=== PATIENT | female | born 1955 | race Caucasian/White ===

== ENCOUNTER 2018-03-01 19:00 | Inpatient (IN) | payer OTHER ==
--- NOTE | 2018-03-01 19:17 | ED Physician Chart ---
ED Chief Complaint/HPI - Patient Information Date Seen:: 03/01/18 Time Seen:: 19:00 Chief Complaint:: fall History of Present Illness:: THIS IS A 63 YO HYPERTENSIVE, DIABETIC FEMALE WITH CHRONIC BACK PAIN WHO FELL WHILE WALKING WITH A WALKER JUST COUNTER TOP ASSEMBLER. SHE SUSTAINED A CONTUSION AND HEMATOMA OF THE SCALP WITHOUT LOC. SHE ALSO IS COMPLAINING OF LOWER BACK PAIN. Allergies:: Allergies Allergy/AdvReac Type Severity Reaction Status Date / Time No Known Allergies Allergy Verified 03/01/18 19:03 Vitals:: Vital Signs - 8 hr 03/01/18 19:04 Temp 98.9 F HR 98 RR 18 BP 146/86 O2 Sat % 93 Historian:: Patient, EMS Review:: Nurse's Note Reviewed ED Review of Systems - Review of Systems General/Constitutional: No fever, No chills, No weight loss, No weakness, No diaphoresis, No edema, No loss of appetite Skin: No skin lesions, No rash, No bruising Head: Headache, No light-headedness Eyes: No loss of vision, No pain, No diplopia ENT: No earache, No nasal drainage, No sore throat, No tinnitus Neck: No neck pain, No swelling, No thyromegaly, No stiffness, No mass noted Cardio Vascular: No chest pain, No palpitations, No PND, No orthopnea, No edema Pulmonary: No SOB, No cough, No sputum, No wheezing GI: No nausea, No vomiting, No diarrhea, No pain, No melena, No hematochezia, No constipation, No hematemesis G/U: No dysuria, No frequency, No hematuria Musculoskeletal: No bone or joint pain, Back pain, No muscle pain Endocrine: No polyuria, No polydipsia Psychiatric: No prior psych history, No depression, No anxiety, No suicidal ideation Hematopoietic: No bruising, No lymphadenopathy Allergic/Immuno: No urticaria, No angioedema Neurological: No syncope, No focal symptoms, No weakness, No paresthesia, No headache, No seizure, No dizziness, No confusion, No vertigo ED Past Medical History - Past Medical History Obtainable: Yes Past Medical History: HTN, DM, Dyslipidemia, Arthritis Family History: None Social History: Non Smoker, No Alcohol, No Drug Use, Homeless Surgical History: Cholecystectomy, other (NECK SURGERY) Psychiatricy History: Depression Medication: Reviewed Family Medical History - Family Member Mother History Unknown: Yes ED Physical Exam - Physical Examination General/Constitutional: Awake, Well-developed, well-nourished, Alert, No distress, GCS 15, Non-toxic appearing, Ambulatory Other Head comments:: THERE IS A SMALL HEMATOMA ON THE RIGHT PARIETAL AREA OF THE SCALP WITH TENDERNESS AROUND THE AREA. Eyes: Lids, conjuctiva normal, PERRL, EOMI Skin: Nl inspection, No rash, No skin lesions, No ecchymosis, Well hydrated, No lymphadenopathy ENMT: External ears, nose nl, Nasal exam nl, Lips, teeth, gums nl Neck: Nontender, Full ROM w/o pain, No JVD, No nuchal rigidity, No bruit, No mass, No stridor Respiratory: Nl effort/Exclusion, Clear to Auscultation, No Wheeze/Rhonchi/Rales Cardio Vascular: RRR, No murmur, gallop, rubs, NL S1 S2 GI: No tenderness/rebounding/guarding, No organomegaly, No hernia, Normal BS's, Nondistended, No mass/bruits, No McBurney tenderness : No CVA tenderness Extremities: No tenderness or effusion, Full ROM, normal strength in all extremities, No edema, Normal digits & nails Neuro/Psych: Alert/oriented, DTR's symmetric, Normal sensory exam, Normal motor strength, Judgement/insight normal, Mood normal, Normal gait, No focal deficits Misc: No paraspinal tenderness Other Misc comments:: THE PATIENT'S LUMBOSACRAL AREA IS TENDER BILATERALLY WITH NORMAL BUT PAINFUL ROM. ED Labs/Radiology/EKG Results - Lab Results Results: Abnormal Lab Results 03/01/18 03/01/18 03/01/18 19:19 19:19 19:19 WBC 8.9 RBC 5.37 H Hgb 16.0 Hct 47.5 MCV 88.5 MCH 29.8 MCHC Differential 33.7 RDW 13.2 Plt Count 182 MPV 9.4 Neutrophils % 54.6 Lymphocytes % 35.7 Monocytes % 6.3 Eosinophils % 3.0 Basophils % 0.4 PT 11.5 INR 1.10 PTT (Actin FS) 23.9 L Sodium 132 L Potassium 4.3 Chloride 96 L Carbon Dioxide 29.4 Anion Gap 10.9 BUN 16 Creatinine 0.9 Est GFR ( Amer) > 60.0 Est GFR (Non-Af Amer) > 60.0 BUN/Creatinine Ratio 17.8 Glucose 311 H Calcium 9.9 Total Bilirubin 0.8 AST 78 H ALT 55 H Alkaline Phosphatase 93 Troponin I Total Protein 7.8 Albumin 4.2 Globulin 3.6 Albumin/Globulin Ratio 1.2 03/01/18 19:19 WBC RBC Hgb Hct MCV MCH MCHC Differential RDW Plt Count MPV Neutrophils % Lymphocytes % Monocytes % Eosinophils % Basophils % PT INR PTT (Actin FS) Sodium Potassium Chloride Carbon Dioxide Anion Gap BUN Creatinine Est GFR ( Amer) Est GFR (Non-Af Amer) BUN/Creatinine Ratio Glucose Calcium Total Bilirubin AST ALT Alkaline Phosphatase Troponin I < 0.01 L Total Protein Albumin Globulin Albumin/Globulin Ratio - Radiology Results Results: CHEST X-RAY = NAD CT OF THE HEAD = NAD CT OF THE LUMBOSACRAL SPINE = SEVERE DEGENERATIVE DISEASE - EKG Interpretations EKG Time:: 19:41 Rate & Rhythm: 95 and sinus Sharon: left axis ED Assessment - Assessment General Assessment: HEAD AND BACK TRAUMA HEMATOMA OF THE HEAD ED Septic Shock - . Is Septic Shock (SBP<90, OR Lactate>4 mmol\L) present?: No - <6hrs of presentation: Vital Signs: Vital Signs - 8 hr 03/01/18 19:04 Temp 98.9 F HR 98 RR 18 BP 146/86 O2 Sat % 93 ED Reassessment (Disposition) - Reassessment Reassessment Condition:: Improved - Diagnosis Diagnosis:: HEAD TRAUMA CONTUSION OF THE LUMBOSACRAL SPINE SEVERE LUMBOSACRAL DEGENERATIVE DISEASE DIABETES MELLITUS HYPERTENSION - Patient Disposition Discharge/Transfer:: Acute Care w/in this hosp Admitting Medical Physician:: Eliza Gaxiola Condition at Disposition:: Unchanged ED Discharge Plan - Patient Disposition Admit/Discharge/Transfer: Home Health IV Service Condition at Disposition: Guarded
[2018-03-01 19:28] LABS: % BASOPHILS 0.4 % (0.0-2.0); % LYMPHOCYTES 35.7 % (20.0-50.0); % MONOCYTES 6.3 % (2.0-10.0); % NEUTROPHILS 54.6 % (40.0-80.0); EOSINOPHILE ABSOLUTE 0.3 Th/cmm (0.1-0.4); HEMATOCRIT 47.5 % (41.0-60); LYMPHOCYTE ABSOLUTE 3.2 Th/cmm (1.5-3.0); MEAN CELL VOLUME 88.5 fl (81-100); MEAN CORPUSCULAR HEMOGLOBIN 29.8 pg (27.0-31.0); MEAN CORPUSCULAR HGB CONC 33.7 pg (28.0-36.0); MEAN PLATELET VOLUME 9.4 fl; MONOCYTE ABSOLUTE 0.6 Th/cmm (0.3-1.0); NEUTROPHILE ABSOLUTE 4.8 Th/cmm (1.8-8.0); PLATELET COUNT 182 Th/cmm (150-400); RED BLOOD COUNT 5.37 Mil/cmm (3.80-5.10); RED CELL DISTRIBUTION WIDTH 13.2 % (11.5-20.0); WHITE BLOOD COUNT 8.9 Th/cmm (4.8-10.8)
[2018-03-01 19:39] LABS: INR 1.1 (0.5-1.4); PROTHROMBIN TIME (TEST) 11.5 SECONDS (9.5-11.5)
[2018-03-01 19:43] LABS: ALB/GLOB RATIO 1.2 (1.0-1.8); ALBUMIN 4.2 gm/dL (3.7-5.3); ALKALINE PHOSPHATASE 93 U/L (34-104); ANION GAP 10.9 (7.0-16.0); BILIRUBIN,TOTAL 0.8 mg/dL (0.3-1.0); BUN - UREA NITROGEN 16 mg/dL (7-25); CALCIUM SERUM 9.9 mg/dL (8.6-10.3); CARBON DIOXIDE 29.4 mEq/L (21.0-31.0); CHLORIDE 96 mEq/L (98-107); CREATININE - SERUM 0.9 mg/dL (0.6-1.2); GFR AFRICAN-AMERICAN > 60.0 ml/min (>90); GFR NON AFRICAN-AMERICAN > 60.0 ml/min; GLUCOSE 311 mg/dL (70-105); POTASSIUM SERUM 4.3 mEq/L (3.5-5.1); SGOT 78 U/L (13-39); SGPT/ALT 55 U/L (7-52); SODIUM SERUM 132 mEq/L (136-145); TOTAL PROTEIN,SERUM 7.8 gm/dL (6.0-8.3)
[2018-03-01 21:36] LABS: URINE MICROSCOPIC INDICATED? YES; URINE SOURCE CLEAN C
[2018-03-01 21:39] LABS: URINE BILIRUBIN NEGATIVE (NEGATIVE); URINE BLOOD NEGATIVE (NEGATIVE); URINE GLUCOSE (UA) >=1000 mg/dL (NEGATIVE); URINE KETONE NEGATIVE (NEGATIVE); URINE LEUKOCYTE ESTERASE NEGATIVE (NEGATIVE); URINE NITRATE NEGATIVE (NEGATIVE); URINE PH 5.5 (4.6 - 8.0); URINE PROTEIN NEGATIVE (NEGATIVE); URINE UROBILINOGEN 0.2 E.U./dL (0.2 - 1.0)
[2018-03-01 21:41] LABS: URINE CLARITY CLEAR (CLEAR); URINE COLOR YELLOW
[2018-03-01 21:43] LABS: URINE BACTERIA NONE SEEN /hpf (NONE SEEN); URINE EPITHELIAL CELLS NONE SEEN /lpf (FEW); URINE RBC NONE SEEN /hpf (0-5); URINE WBC NONE SEEN /hpf (0-5)
[2018-03-01] MEDS: Sodium Chloride 0.9% 1,000 ML IV SCH (23:21)
[2018-03-01] MEDS: INSULIN ASPART, RECOMBINANT 100 UNITS/ML SUBQ SCH (23:44)
[2018-03-01] MEDS: Hydrocodone/APAP 10 mg/325 mg Tab PO PRN (23:46)
[2018-03-02 00:22] VITALS: BP 99/63
[2018-03-02 06:03] LABS: % BASOPHILS 1.3 % (0.0-2.0); % EOSINOPHILS 4.2 % (0.0-5.0); % LYMPHOCYTES 42.8 % (20.0-50.0); % MONOCYTES 7.4 % (2.0-10.0); % NEUTROPHILS 44.3 % (40.0-80.0); BASOPHILE ABSOLUTE 0.1 Th/cumm (0-0.2); EOSINOPHILE ABSOLUTE 0.3 Th/cmm (0.1-0.4); HEMATOCRIT 41.5 % (41.0-60); MEAN CELL VOLUME 87.3 fl (81-100); MEAN CORPUSCULAR HEMOGLOBIN 29.5 pg (27.0-31.0); MEAN CORPUSCULAR HGB CONC 33.8 pg (28.0-36.0); MEAN PLATELET VOLUME 9.2 fl; MONOCYTE ABSOLUTE 0.5 Th/cmm (0.3-1.0); PLATELET COUNT 161 Th/cmm (150-400); RED BLOOD COUNT 4.76 Mil/cmm (3.80-5.10); RED CELL DISTRIBUTION WIDTH 13.4 % (11.5-20.0)
[2018-03-02 06:06] LABS: WHITE BLOOD COUNT 6.9 Th/cmm (4.8-10.8)
[2018-03-02 06:22] LABS: ANION GAP 9.5 (7.0-16.0); BUN - UREA NITROGEN 24 mg/dL (7-25); CARBON DIOXIDE 26.3 mEq/L (21.0-31.0); CHLORIDE 101 mEq/L (98-107); CREATININE - SERUM 0.8 mg/dL (0.6-1.2); GFR AFRICAN-AMERICAN > 60.0 ml/min (>90); GFR NON AFRICAN-AMERICAN > 60.0 ml/min; GLUCOSE 306 mg/dL (70-105); POTASSIUM SERUM 3.8 mEq/L (3.5-5.1); SODIUM SERUM 133 mEq/L (136-145)
[2018-03-02] MEDS: INSULIN ASPART, RECOMBINANT 100 UNITS/ML SUBQ SCH ×4 (08:37→20:42)
[2018-03-02] MEDS: Hydrocodone/APAP 10 mg/325 mg Tab PO PRN ×2 (08:37→17:14)
--- NOTE | 2018-03-02 09:08 | Diagnostic Imaging Report ---
CHEST X-RAY: AP view INDICATION: Trauma COMPARISON: None FINDINGS: No evidence of pneumothorax. Left lower lung zone linear markings are noted. Mild chronic changes are noted. There is no focal consolidation or pleural effusions The heart is normal in size. Postsurgical changes of the lower cervical spine are partially visualized. Degenerative changes of the spine and shoulders are noted. There is mild elevation of the right hemidiaphragm. IMPRESSION: Chronic lung changes with left lower lung zone linear markings which may be due to subsegmental atelectasis or less likely scarring. No focal consolidation or evidence of a pneumothorax.
--- NOTE | 2018-03-02 09:10 | Diagnostic Imaging Report ---
Head CT without intravenous contrast Indication: Trauma Comparison: None Technique: Axial images were obtained from the vertex to the skull base without IV contrast. Coronal reconstructions were made. Total DLP: 881, [id number] FINDINGS: Images of the brain obtained without contrast demonstrate no evidence of an acute hemorrhage. The lam-white matter differentiation is preserved. The ventricles and basal cisterns are patent. No mass effect or midline shift. Right parietal/occipital skull soft tissue swelling is noted. No evidence of a skull fracture. The visualized paranasal sinuses demonstrate minimal mucosal thickening. IMPRESSION: No acute intracranial abnormality. Right parietal occipital scalp soft tissue swelling. No evidence of a skull fracture.
[2018-03-02] MEDS ORDERED: Dextrose 50% 50 mL Abboject IVP PRN (09:15)
--- NOTE | 2018-03-02 09:17 | Diagnostic Imaging Report ---
CT lumbar spine without IV contrast HISTORY: Trauma COMPARISON: None Technique: Axial images were obtained from the lower thoracic spine to the upper sacrum without IV contrast. Reconstructions were made. total DLP: 1682, CTDI58 Findings: Images of the lumbar spine obtained without contrast demonstrate 1 cm anterolisthesis of L4 on L5 with bilateral pars defects at these levels. There is advanced disc space loss of height at this level. There is moderate spinal canal and severe bilateral neural foraminal narrowing at this level. There is lucency seen along the superior endplate of L5 likely a Schmorl's node. Additional generalized moderate to advanced degenerative changes are seen greatest at the facet joints. Vacuum phenomena is seen at L4/L5 and L5/S1. No acute fracture is identified. There is mild scoliosis. The visualized retroperitoneum demonstrates no acute abnormalities. Degenerative changes of the SI joints are noted. IMPRESSION: Chronic pars defects at L4/L5 bilaterally with associated 1 cm anterolisthesis causing moderate spinal canal and severe bilateral neural foraminal narrowing. Please correlate with patient's clinical history. Degenerative changes, advanced at L4/L5 with advanced disc space loss of height at this level. Lucency along the superior aspect of the L5 vertebral body is likely a Schmorl's node. No acute fracture identified. If indicated MRI follow-up of these findings may also be obtained.
--- NOTE | 2018-03-02 16:41 | History & Physical ---
ADMIT DATE: 03/02/2018 CHIEF COMPLAINT: Fall and low back pain. HISTORY OF PRESENT ILLNESS: The patient is a 63-year-old female. She has history of chronic low back pain and she uses a walker. She has history of unsteady gait. She states her boyfriend was helping her and he was pushing the walker with her and they hit a bump and she fell back on her low back. She has been experiencing pain and she also sustained a head injury as well. There was a hematoma. She presented to the ER after which she was admitted for further workup and treatment. PAST MEDICAL HISTORY: Significant for hypertension, diabetes, and chronic low back pain. SOCIAL HISTORY: Denies any alcohol, drug or tobacco abuse. FAMILY HISTORY: Noncontributory. ALLERGIES: No known drug allergies. SURGICAL HISTORY: No recent major surgeries. MEDICATIONS: She thinks she takes something for diabetes and hypertension, but she cannot tell me the names. REVIEW OF SYSTEMS: GENERAL: Positive for recent fatigue, but no decreased appetite. HEENT: No recent head trauma, change in vision, taste, hearing, or smell. Oral: No recent pain or discharge. NECK: No recent tracheal deviation. HEAD: Positive for trauma. She fell backwards on her head. Yesterday, she sustained a hematoma. EXTREMITIES: No recent edema. MUSCULOSKELETAL: She has history of unsteady gait and chronic low back pain. SKIN: No recent rashes. PSYCHIATRIC: No history of psychosis or hallucinations. ABDOMEN: No recent pain or distention. GENITOURINARY: Negative. PHYSICAL EXAMINATION: VITAL SIGNS: Temperature is 97.2 degrees, heart rate is 82, respirations is 18, blood pressure 131/82. Currently, she states the pain is about 3/10. GENERAL: No acute distress, awake, alert, but labile mood. PSYCHIATRIC: She has labile mood. She alternates between crying loudly and being normal. HEENT: No acute issues. NECK: Trachea is midline. CARDIOVASCULAR: Regular rate and rhythm. SKIN: No rashes. PSYCHIATRIC: No psychosis or hallucination, but she has labile mood. EXTREMITIES: 1+ edema. MUSCULOSKELETAL: Decreased range of motion in the lumbar spine. She also has unsteady gait. ABDOMEN: Nontender, nondistended. RESPIRATORY: Clear. LABORATORY DATA: Sodium 132, potassium 4.3, chloride 96, bicarbonate 29.4, BUN 16, creatinine 0.9, glucose 311. Troponin less than 0.01. TSH is 0.62. White count is 8.9; hemoglobin is 16; platelet count 182,000. Chest x-ray is negative. ER physician has also ordered a CT of the head, which the preliminary report shows just a hematoma. Chest x-ray is negative. Also, the ER physician has ordered a CT lumbar spine, which is pending. ____ results are pending. ASSESSMENT: 1. Mechanical fall. 2. Unsteady gait. 3. Diabetes mellitus, out of control. 4. Hyponatremia. 5. Chronic low back pain. 6. Closed head injury. 7. Lumbar spine degenerative joint disease. PLAN: Continue pain control, start walking the patient if possible. I have also added metformin and Novolin 70/30 10 units b.i.d. Continue pain control. Follow up on the rest of the imaging studies. Reassurance provided to the patient. JOB# [id number]
[2018-03-02] MEDS: INSULIN 70/30 100 UNITS/ML SUBQ SCH (17:15)
[2018-03-02 19:11] LABS: A1C % 9.6 % (4.0-6.0)
[2018-03-03] MEDS: Hydrocodone/APAP 10 mg/325 mg Tab PO PRN ×4 (01:16→21:00)
[2018-03-03] MEDS: Sodium Chloride 0.9% 1,000 ML IV SCH (04:02)
[2018-03-03 06:10] LABS: AMPHETAMINE URINE NEGATIVE (NEGATIVE); BARBITURATES URINE NEGATIVE (NEGATIVE); BENZODIAZEPINES QUAL URINE POSITIVE (NEGATIVE); CANNABINOID THC NEGATIVE (NEGATIVE); COCAINE METABOLITE QUAL URINE NEGATIVE (NEGATIVE); METHADONE URINE NEGATIVE (NEGATIVE); METHAMPHETAMINES QUAL URINE NEGATIVE (NEGATIVE); OPIATES (MORPHINE) QUAL. URINE POSITIVE (NEGATIVE); PHENCYCLIDINE (PCP) URINE NEGATIVE (NEGATIVE); TRICYCLICS (TCA) QUAL. URINE NEGATIVE (NEGATIVE)
[2018-03-03] MEDS: INSULIN 70/30 100 UNITS/ML SUBQ SCH ×2 (08:32→17:13)
[2018-03-03] MEDS: INSULIN ASPART, RECOMBINANT 100 UNITS/ML SUBQ SCH ×4 (08:33→21:48)
--- NOTE | 2018-03-03 18:15 | Discharge Summary ---
DATE OF DISCHARGE: 03/03/2018 CAUSE OF ADMISSION: The patient is a 63-year-old female. She has history of chronic low back pain and L4-L5, DJD, and disk protrusion as well. She has history of unsteady gait. She states her boyfriend was helping her when she was pushing her walker and she fell and hit her head. She experienced a bump on her head. She was experiencing pain and sustained a head injury. She also was found to have hematoma. ADMITTING DIAGNOSES: 1. Mechanical fall. 2. Unsteady gait. 3. Diabetes mellitus, out of control. 4. Hyponatremia. 5. Chronic low back pain. 6. Closed head injury. 7. Lumbar spine degenerative joint disease. 8. L4-L5 lumbar spine degenerative joint disease. DISCHARGE DIAGNOSES: 1. Mechanical fall. 2. Unsteady gait. 3. Diabetes mellitus, out of control. 4. Hyponatremia. 5. Chronic low back pain. 6. Closed head injury. 7. Lumbar spine degenerative joint disease. 8. L4-L5 lumbar spine degenerative joint disease. 9. Hyponatremia. SUMMARY OF HOSPITAL COURSE: The patient was admitted to Med/Surg. She was placed on appropriate pain control. She has been hydrated with IV fluids. She has been on fingerstick blood sugars and regular insulin sliding scale, also added metformin and Novolin 70/30. She is feeling better today. PHYSICAL EXAMINATION: VITAL SIGNS: Temperature is 96.8 degrees, heart rate is 74, respirations 19, blood pressure 115/78. Currently, no pain. GENERAL: No acute distress, awake, alert. HEENT: No acute issues. NECK: Trachea is midline. CARDIOVASCULAR: Regular rate and rhythm. SKIN: No rash. EXTREMITIES: No edema. LABORATORY DATA: White count is 6.9; hemoglobin is 14; platelet count is 161,000. INR is 1.1. Sodium 133, potassium 3.8, chloride 101, bicarbonate 26.3, BUN 24, creatinine 0.8, glucose is 250. Also, lumbar spine DJD shows the patient's chronic issue, especially regarding the L4-L5 DJD. Lumbar spine CT was done by the ER physician. Head CT shows the hematoma, but no acute abnormalities. PROGNOSIS: Fair. ACTIVITY: As tolerated. DISPOSITION: She is being discharged home. MEDICATIONS: I have given her a script for Raymond. DISPOSITION: She is to follow with her PCP within 1 week of discharge. I have also advised her to follow up with the neurologist and neurosurgeon via her PCP. She states that she has had extensive workup done already. She is aware of the current L4-L5 disk disease. JOB# [id number]
[2018-03-04] MEDS: INSULIN ASPART, RECOMBINANT 100 UNITS/ML SUBQ SCH (08:41)
[2018-03-04] MEDS: INSULIN 70/30 100 UNITS/ML SUBQ SCH (08:42)
[2018-03-04] MEDS ORDERED: Albuterol Nebulizer 2.5mg/3mL HHN PRN (08:54)
--- NOTE | 2018-03-04 08:54 | General Progress Note ---
Subjective - Review of Systems Service Date: 03/04/18 Subjective: Pt seen and eval. Her DC was held on 03/03/18 as she said she doesn't have a place to go. Also, she's very anxious. Complaining of SOB. I've noticed she's sob when she's anxious. Labile mood. Cries easily. No n,v,d or cp. No falls or sz. Objective - Results Result Diagrams: 03/02/18 05:50 03/02/18 05:50 Recent Labs: Laboratory Last Values WBC 6.9 Th/cmm (4.8-10.8) D 03/02/18 05:50 RBC 4.76 Mil/cmm (3.80-5.10) 03/02/18 05:50 Hgb 14.0 gm/dL (12-16) 03/02/18 05:50 Hct 41.5 % (41.0-60) D 03/02/18 05:50 MCV 87.3 fl (81-100) 03/02/18 05:50 MCH 29.5 pg (27.0-31.0) 03/02/18 05:50 MCHC Differential 33.8 pg (28.0-36.0) 03/02/18 05:50 RDW 13.4 % (11.5-20.0) 03/02/18 05:50 Plt Count 161 Th/cmm (150-400) 03/02/18 05:50 MPV 9.2 fl 03/02/18 05:50 Neutrophils % 44.3 % (40.0-80.0) 03/02/18 05:50 Lymphocytes % 42.8 % (20.0-50.0) 03/02/18 05:50 Monocytes % 7.4 % (2.0-10.0) 03/02/18 05:50 Eosinophils % 4.2 % (0.0-5.0) 03/02/18 05:50 Basophils % 1.3 % (0.0-2.0) 03/02/18 05:50 PT 11.5 SECONDS (9.5-11.5) 03/01/18 19:19 INR 1.10 (0.5-1.4) 03/01/18 19:19 PTT (Actin FS) 23.9 SECONDS (26.0-38.0) L 03/01/18 19:19 Sodium 133 mEq/L (136-145) L 03/02/18 05:50 Potassium 3.8 mEq/L (3.5-5.1) 03/02/18 05:50 Chloride 101 mEq/L (98-107) 03/02/18 05:50 Carbon Dioxide 26.3 mEq/L (21.0-31.0) 03/02/18 05:50 Anion Gap 9.5 (7.0-16.0) 03/02/18 05:50 BUN 24 mg/dL (7-25) 03/02/18 05:50 Creatinine 0.8 mg/dL (0.6-1.2) 03/02/18 05:50 Est GFR ( Amer) > 60.0 ml/min (>90) 03/02/18 05:50 Est GFR (Non-Af Amer) > 60.0 ml/min 03/02/18 05:50 BUN/Creatinine Ratio 30.0 03/02/18 05:50 Glucose 306 mg/dL (70-105) H 03/02/18 05:50 POC Glucose 207 MG/DL (70 - 105) H 03/04/18 05:54 Hemoglobin A1c % 9.6 % (4.0-6.0) H 03/01/18 19:19 Calcium 9.0 mg/dL (8.6-10.3) 03/02/18 05:50 Total Bilirubin 0.8 mg/dL (0.3-1.0) 03/01/18 19:19 AST 78 U/L (13-39) H 03/01/18 19:19 ALT 55 U/L (7-52) H 03/01/18 19:19 Alkaline Phosphatase 93 U/L (34-104) 03/01/18 19:19 Troponin I < 0.01 ng/mL (0.01-0.05) L 03/01/18 19:19 Total Protein 7.8 gm/dL (6.0-8.3) 03/01/18 19:19 Albumin 4.2 gm/dL (3.7-5.3) 03/01/18 19:19 Globulin 3.6 gm/dL 03/01/18 19:19 Albumin/Globulin Ratio 1.2 (1.0-1.8) 03/01/18 19:19 TSH 0.62 uIU/ml (0.34-5.60) 03/01/18 19:19 Urine Source CLEAN C 03/01/18 20:30 Urine Color YELLOW 03/01/18 20:30 Urine Clarity CLEAR (CLEAR) 03/01/18 20:30 Urine pH 5.5 (4.6 - 8.0) 03/01/18 20:30 Ur Specific Benedict >= 1.030 (1.005-1.030) 03/01/18 20:30 Urine Protein NEGATIVE mg/dL (NEGATIVE) 03/01/18 20:30 Urine Glucose (UA) >=1000 mg/dL (NEGATIVE) H 03/01/18 20:30 Urine Ketones NEGATIVE mg/dL (NEGATIVE) 03/01/18 20:30 Urine Blood NEGATIVE (NEGATIVE) 03/01/18 20:30 Urine Nitrate NEGATIVE (NEGATIVE) 03/01/18 20:30 Urine Bilirubin NEGATIVE (NEGATIVE) 03/01/18 20:30 Urine Urobilinogen 0.2 E.U./dL (0.2 - 1.0) 03/01/18 20:30 Ur Leukocyte Esterase NEGATIVE (NEGATIVE) 03/01/18 20:30 Urine RBC NONE SEEN /hpf (0-5) 03/01/18 20:30 Urine WBC NONE SEEN /hpf (0-5) 03/01/18 20:30 Ur Epithelial Cells NONE SEEN /lpf (FEW) 03/01/18 20:30 Urine Bacteria NONE SEEN /hpf (NONE SEEN) 03/01/18 20:30 Urine Opiates Screen POSITIVE (NEGATIVE) H 03/03/18 03:35 Urine Methadone Screen NEGATIVE (NEGATIVE) 03/03/18 03:35 Ur Barbiturates Screen NEGATIVE (NEGATIVE) 03/03/18 03:35 Ur Tricyclics Screen NEGATIVE (NEGATIVE) 03/03/18 03:35 Ur Phencyclidine Scrn NEGATIVE (NEGATIVE) 03/03/18 03:35 Amphetamines Screen NEGATIVE (NEGATIVE) 03/03/18 03:35 U Methamphetamines Scrn NEGATIVE (NEGATIVE) 03/03/18 03:35 U Benzodiazepines Scrn POSITIVE (NEGATIVE) H 03/03/18 03:35 U Cocaine Metab Screen NEGATIVE (NEGATIVE) 03/03/18 03:35 U Cannabinoids Screen NEGATIVE (NEGATIVE) 03/03/18 03:35 - Physical Exam Vitals and I&O: Vital Signs Temp 97.6 F 03/04/18 04:00 Pulse 76 03/04/18 04:00 Resp 18 03/04/18 04:00 BP 157/88 03/04/18 04:00 Pulse Ox 98 03/04/18 04:00 Intake & Output 03/03/18 03/04/18 03/04/18 18:59 06:59 18:59 Intake Total 800 600 Balance 800 600 Weight (lbs) 105.233 kg 105.233 kg Intake: Oral 800 600 Other: # Voids 3 2 # Bowel Movements 1 0 Weight Source Bedscale Bedscale Active Medications: Current Medications Acetaminophen (Tylenol) 650 mg PO Q6H PRN PRN Reason: HEADACHE/TEMP ABOVE 100F Stop: 05/01/18 09:14 Last Admin: 03/04/18 04:07 Dose: 650 mg Acetaminophen/Hydrocodone Bitart (Blain 10 Mg/325 Mg) 1 tab PO Q4HR PRN PRN Reason: PAIN Stop: 04/30/18 23:03 Last Admin: 03/03/18 21:00 Dose: 1 tab Dextrose (D50w) 50 ml IVP PRN PRN PRN Reason: BLOOD SUGAR BELOW 60 Stop: 05/01/18 09:14 Docusate Sodium (Colace) 100 mg PO BID PRN PRN Reason: Constipation Stop: 05/01/18 09:14 Last Admin: 03/03/18 20:25 Dose: 100 mg Heparin Sodium (Porcine) (Heparin) 5,000 units SUBQ Q12HR [facility] Stop: 05/01/18 20:59 Last Admin: 03/04/18 08:42 Dose: 5,000 units Sodium Chloride (Nacl 0.9%) 1,000 mls @ 70 mls/hr IV .[id number] [facility] Stop: 04/30/18 23:03 Last Admin: 03/03/18 04:02 Dose: 70 mls/hr Insulin Aspart (Novolog) 0 units SUBQ ACHS BOB PRN Reason: Protocol Stop: 05/01/18 07:29 Last Admin: 03/04/18 08:41 Dose: 4 unit Insulin Human Isoph/Insulin Regular (Novolin 70/30) 10 units SUBQ BIDAC BOB PRN Reason: Protocol Stop: 05/01/18 16:29 Last Admin: 03/04/18 08:42 Dose: 10 units Lorazepam (Ativan) 2 mg IVP Q4HR PRN; Protocol PRN Reason: Agitation Stop: 05/01/18 09:14 Last Admin: 03/02/18 20:41 Dose: 2 mg Metformin HCl (Glucophage) 850 mg PO BIDWM BOB Stop: 05/01/18 17:59 Last Admin: 03/04/18 08:42 Dose: 850 mg Ondansetron HCl (Zofran) 4 mg IVP Q6H PRN PRN Reason: Nausea / Vomiting Stop: 05/01/18 09:14 Zolpidem Tartrate (Ambien) 10 mg PO HS PRN PRN Reason: Insomnia Stop: 05/01/18 09:14 General: Alert, Oriented x3, No acute distress HEENT: Atraumatic, PERRLA, EOMI Neck: Supple, no JVD Cardiovascular: Regular rate, Normal S1, Normal S2 Lungs: Clear to auscultation, Normal air movement Abdomen: Bowel sounds, Soft Psych/Mental Status: Other (anxious, depressed) Assessment/Plan - Problem List Patient Problems: All Active Problems FALL WITH TRAUMA TO RIGHT PARIETAL (Acute) - [facility] DM-OOC Anxiety Depression Ch LBP L spine DJD [facility]I - Plan Plan: Added novolin 70/30 a couple of days ago, along with Metformin. Add Tradjenta today. Pain control. Pt is very anxious. Psych eval with Dr. Herzog. PT eval. office services representative working with Pt as she says she doesn't have a place to go. She's complaining of SOB at times-obtain ABG. Nutritional Asmnt/Malnutr-PDOC - Dietary Evaluation Malnutrition Findings (Please click <Entered> for more info): Nutritional Asmnt/Malnutrition Start: 03/02/18 14: 01 Text: Status: Complete Freq: Document 03/02/18 14:01 STEVE (Rec: 03/02/18 14:15 STEVE TENORIO- [email or web address]) Nutritional Asmnt/Malnutrition Patient General Information Nutritional Screening High Risk Diagnosis Mechanical fall Pertinent Medical Hx/Surgical Hx Diabetes, Arthritis, depression, HTN Subjective Information Patient seen as high risk due to glucose 311 on admission. Per nursing notes, patient is homeless. Current Diet Order/ Nutrition Support 60 gm CCHO Patient / S.O Not Indicated Pertinent Medications D50W @50 ml/hr, colace novolog , novolin, metformin, zofran Pertinent Labs (03/02) Na 133, glucose 257-325 Nutritional Hx/Data Height 1.63 m Height (Calculated Centimeters) 162.6 Current Weight (lbs) 95.708 kg Weight (Calculated Kilograms) 95.7 Weight (Calculated Grams) 03747.0 [place] Body Weight 120 % [place]ar Body Weight 175 Body Mass Index (BMI) 36.2 Recent Weight Change No Weight Status Obese GI Symptoms GI Symptoms None Last BM None noted since admission Difficult in: None Food Allergies No Cultural/Ethnic/[employer] Belief none indicated Usual diet at home Regular Skin Integrity/Comment: Jan 18, intact Current %PO Good (75-100%) Estimated Nutritional Goals BEE in Kcals: Adj wt of IBW Calories/Kcals/Kg 64.8kg ADj wt Kcals Calculated ~0650-7960 kcal/day Protein: Adj wt of IBW Protein g/k-1.2 gm/kg Protein Calculated 65-75 gm/day Fluid: ml ~8422-8454 ml/day (1 ml/kcal) Nutritional Problem 1. Problem Problem Altered nutrition related lab values related to Etiology uncontrolled hyperglycemia and electrolyte imbalance aeb Signs/Symptoms: Na 133, Glucose 257-325 Intervention/Recommendation Comments 1. Continue 60 gm CCHO diet as tolerated by patient. 2. MD to continue to adjust insulin regimen for optimal glycemic control. 3. MD to consider fluid restriction due to hyponatremia. Expected Outcomes/Goals Expected Outcomes/Goals oral intake to meet >75% of nutrient needs, labs WNL, weight stable or trend toward idel body weight.
== END 2018-03-04 10:51 | disposition home or self-care (01) | DRG 115 ==
LOC: ER 19:00 → MSI 21:15
PROVIDERS: ADMIT General Practice; ATTEND General Practice
DX: S09.90XA Unspecified injury of head, initial encounter (principal); E11.65 Type 2 diabetes mellitus with hyperglycemia; E87.1 Hypo-osmolality and hyponatremia; M47.896 Other spondylosis, lumbar region; I10 Essential (primary) hypertension; G89.29 Other chronic pain; E78.5 Hyperlipidemia, unspecified; M19.90 Unspecified osteoarthritis, unspecified site; M51.26 Other intervertebral disc displacement, lumbar region; F32.9 Major depressive disorder, single episode, unspecified; S30.0XXA Contusion of lower back and pelvis, initial encounter; Y93.01 Activity, walking, marching and hiking; W18.09XA Striking against other object with subsequent fall, initial encounter; R26.81 Unsteadiness on feet; M47.897 Other spondylosis, lumbosacral region; F41.9 Anxiety disorder, unspecified; Z90.49 Acquired absence of other specified parts of digestive tract; Y92.89 Other specified places as the place of occurrence of the external cause; Y99.8 Other external cause status
CPT/HCPCS: 36415-UA; 70450-TC; 71045-TC; 72131-TC; 80048-TC; 80053-TC; 80307; 81001-TC; 82948-90; 83036-90; 84443-TC; 84484-TC; 85025-TC; 85610-TC; 85730-TC; 93005; J1644; J1815; J1885; J2060; J7030; Z7610

== ENCOUNTER 2018-08-04 09:59 | Emergency (ER) | payer OTHER ==
--- NOTE | 2018-08-04 10:36 | ED Physician Chart ---
ED Chief Complaint/HPI - Patient Information Date Seen:: 08/04/18 Time Seen:: 10:11 Chief Complaint:: R hip pain (chronic) History of Present Illness:: R hip pain (chronic) that was fully worked up at [facility]. She was just released from [facility] yesterday on a 17 year old warrant for domestic violence. States that she doesn't want anything for pain since she has been on pain pills for years. States that she Allergies:: Allergies Allergy/AdvReac Type Severity Reaction Status Date / Time No Known Allergies Allergy Verified 03/01/18 19:03 Vitals:: Vital Signs - 8 hr 08/04/18 10:11 Temp 98.7 F HR 88 RR 17 BP 103/61 O2 Sat % 96 ED Review of Systems - Review of Systems General/Constitutional: No fever, No chills, No weight loss, No weakness, No diaphoresis, No edema, No loss of appetite Skin: No skin lesions, No rash, No bruising Head: No headache, No light-headedness Eyes: No loss of vision, No pain, No diplopia ENT: No earache, No nasal drainage, No sore throat, No tinnitus Neck: No neck pain, No swelling, No thyromegaly, No stiffness, No mass noted Cardio Vascular: No chest pain, No palpitations, No PND, No orthopnea, No edema Pulmonary: No SOB, No cough, No sputum, No wheezing GI: Other (blood per rectum on toilet paper per report) G/U: No dysuria, No frequency, No hematuria Musculoskeletal: Bone or joint pain Endocrine: No polyuria, No polydipsia Psychiatric: No prior psych history, No depression, No anxiety, No suicidal ideation Hematopoietic: No bruising, No lymphadenopathy Allergic/Immuno: No urticaria, No angioedema Neurological: No syncope, No focal symptoms, No weakness, No paresthesia, No headache, No seizure, No dizziness, No confusion, No vertigo ED Past Medical History - Past Medical History Obtainable: Yes Past Medical History: Other (chronic pain of right hip) Surgical History: Cholecystectomy Family Medical History - Family Member Mother History Unknown: Yes Ethnicity: Living Status: Hx Family Cancer: No Hx Family Coronary Artery Disease: No Hx Family Congestive Heart Failure: No Hx Family Hypertension: Yes Hx Family Stroke: No Hx Family Diabetes: Yes Hx Family Seizures: No Hx Family Dementia: No Hx Family AIDS: No Hx Family HIV: No Hx Family COPD: No Hx Family Hepatitis: No Hx Family Psychiatric Problems: No Hx Family Tuberculosis: No ED Physical Exam - Physical Examination General/Constitutional: Awake, Alert Other Gen/Cons comments:: obese Head: Atraumatic ENMT: External ears, nose nl Neck: Nontender, Full ROM w/o pain, No JVD, No nuchal rigidity, No bruit, No mass, No stridor Respiratory: Nl effort/Exclusion, Clear to Auscultation, No Wheeze/Rhonchi/Rales Cardio Vascular: RRR, No murmur, gallop, rubs, NL S1 S2 GI: No tenderness/rebounding/guarding, No organomegaly, No hernia, Normal BS's, Nondistended, No mass/bruits, No McBurney tenderness : No CVA tenderness Extremities: normal strength in all extremities, No edema, Normal digits & nails Other Extremities comments:: pain with movement of right hip. Neuro/Psych: Alert/oriented, Normal gait Misc: Normal back, No paraspinal tenderness ED Assessment - Assessment General Assessment: resting comfortably. ate lunch. no bowel movement. not enough stool for hemoccult. no blood per rectum per report ED Septic Shock - . Is Septic Shock (SBP<90, OR Lactate>4 mmol\L) present?: No - <6hrs of presentation: Vital Signs: Vital Signs - 8 hr 08/04/18 10:11 Temp 98.7 F HR 88 RR 17 BP 103/61 O2 Sat % 96 ED Reassessment (Disposition) - Reassessment Reassessment Condition:: Improved - Diagnosis Diagnosis:: Vaginal yeast infection Chronic right hip pain Urinary tract infection Constipation Opiate use Methamphetamine use Illicit drug use - Aftercare/Follow up Instructions Medication Prescribed:: Bactrim DS: 1 po bid # 20 Diflucan 150 mg po every other day #2 Monistat cream and suppository over the counter - Patient Disposition Discharge/Transfer:: Home Condition at Disposition:: Stable, Improved
[2018-08-04 10:52] LABS: % BASOPHILS 1.4 % (0.0-2.0); % EOSINOPHILS 2.3 % (0.0-5.0); % LYMPHOCYTES 27.3 % (20.0-50.0); % MONOCYTES 5.3 % (2.0-10.0); % NEUTROPHILS 63.7 % (40.0-80.0); BASOPHILE ABSOLUTE 0.1 Th/cumm (0-0.2); EOSINOPHILE ABSOLUTE 0.2 Th/cmm (0.1-0.4); HEMATOCRIT 46.1 % (41.0-60); HEMOGLOBIN 15.6 gm/dL (12-16); MEAN CELL VOLUME 90.5 fl (81-100); MEAN CORPUSCULAR HEMOGLOBIN 30.7 pg (27.0-31.0); MEAN CORPUSCULAR HGB CONC 33.9 pg (28.0-36.0); MEAN PLATELET VOLUME 9.5 fl; MONOCYTE ABSOLUTE 0.4 Th/cmm (0.3-1.0); NEUTROPHILE ABSOLUTE 4.7 Th/cmm (1.8-8.0); PLATELET COUNT 142 Th/cmm (150-400); RED BLOOD COUNT 5.09 Mil/cmm (3.80-5.10); RED CELL DISTRIBUTION WIDTH 13.3 % (11.5-20.0); WHITE BLOOD COUNT 7.4 Th/cmm (4.8-10.8)
[2018-08-04 10:57] LABS: PROTHROMBIN TIME (TEST) 10.4 SECONDS (9.5-11.5)
[2018-08-04 11:01] LABS: ALB/GLOB RATIO 1.3 (1.0-1.8); ALBUMIN 3.9 gm/dL (3.7-5.3); ALKALINE PHOSPHATASE 85 U/L (34-104); ANION GAP 11.7 (7.0-16.0); BILIRUBIN,TOTAL 0.7 mg/dL (0.3-1.0); BUN - UREA NITROGEN 18 mg/dL (7-25); CALCIUM SERUM 9.7 mg/dL (8.6-10.3); CARBON DIOXIDE 28.2 mEq/L (21.0-31.0); CHLORIDE 97 mEq/L (98-107); CREATININE - SERUM 0.7 mg/dL (0.6-1.2); GFR AFRICAN-AMERICAN > 60.0 ml/min (>90); GFR NON AFRICAN-AMERICAN > 60.0 ml/min; GLUCOSE 323 mg/dL (70-105); POTASSIUM SERUM 3.9 mEq/L (3.5-5.1); SGOT 41 U/L (13-39); SGPT/ALT 36 U/L (7-52); SODIUM SERUM 133 mEq/L (136-145)
[2018-08-04 11:34] LABS: URINE SOURCE CLEAN C
[2018-08-04 11:39] LABS: URINE BILIRUBIN NEGATIVE (NEGATIVE); URINE BLOOD MODERATE (NEGATIVE); URINE GLUCOSE (UA) >=1000 mg/dL (NEGATIVE); URINE KETONE NEGATIVE (NEGATIVE); URINE LEUKOCYTE ESTERASE NEGATIVE (NEGATIVE); URINE MICROSCOPIC INDICATED? YES; URINE NITRATE NEGATIVE (NEGATIVE); URINE PROTEIN NEGATIVE (NEGATIVE); URINE UROBILINOGEN 0.2 E.U./dL (0.2 - 1.0)
[2018-08-04 11:56] LABS: AMPHETAMINE URINE NEGATIVE (NEGATIVE); BARBITURATES URINE NEGATIVE (NEGATIVE); COCAINE METABOLITE QUAL URINE NEGATIVE (NEGATIVE); PHENCYCLIDINE (PCP) URINE NEGATIVE (NEGATIVE)
[2018-08-04 11:59] LABS: BENZODIAZEPINES QUAL URINE POSITIVE (NEGATIVE); CANNABINOID THC NEGATIVE (NEGATIVE); METHADONE URINE NEGATIVE (NEGATIVE); METHAMPHETAMINES QUAL URINE POSITIVE (NEGATIVE); OPIATES (MORPHINE) QUAL. URINE POSITIVE (NEGATIVE); TRICYCLICS (TCA) QUAL. URINE NEGATIVE (NEGATIVE)
[2018-08-04 12:06] LABS: URINE CLARITY CLOUDY (CLEAR); URINE COLOR YELLOW
[2018-08-04 12:07] LABS: URINE EPITHELIAL CELLS FEW /lpf (FEW)
[2018-08-04 12:08] LABS: URINE BACTERIA OCCASIONAL /hpf (NONE SEEN)
== END 2018-08-04 13:20 | disposition home or self-care (01) ==
LOC: ER 09:59
DX: M25.551 Pain in right hip (principal); G89.29 Other chronic pain; N76.0 Acute vaginitis; N39.0 Urinary tract infection, site not specified; K59.00 Constipation, unspecified; F11.90 Opioid use, unspecified, uncomplicated; F15.90 Other stimulant use, unspecified, uncomplicated; Z90.49 Acquired absence of other specified parts of digestive tract; Z59.0 Homelessness
CPT/HCPCS: 36415-UA; 80053-TC; 80307; 81001-TC; 82270-TC; 83036-90; 85025-TC; 85610-TC; 87086-90; Z7502